=== PATIENT | female | born 1955 | race Caucasian/White ===

== ENCOUNTER 2025-04-13 08:57 | Emergency (ER) | payer MEDICARE ==
[~2025-04-13] VITALS: Ht 167.6 cm; Wt 50.0 kg
[~2025-04-13 08:57] MED LIST: CLOT15CR5 TOP; CLOT15CR5 TP; CYAN10003 SL; HYDR25TA78 PO; NIZOS TP; OLAN2.5T77 MT; SERT20OR6 MT; [UNRECOGNIZED DRUG - CODE] IM
[2025-04-13 09:01] VITALS: O2SAT 99
[2025-04-13 09:39] LABS: BASOPHILS % 0.2 % (0.0-2.0); EOSINOPHILS % 2.7 % (0.0-5.0); HEMATOCRIT. 32.4 % (36.0-48.0); HEMOGLOBIN. 10.4 g/dL (12.0-16.0); LYMPHOCYTES % 7.5 % (20.0-50.0); MEAN PLATELET VOLUME 7.8 fl (7.4-10.4); MONOCYTES % 5.4 % (2.0-8.0); NEUTROPHILS % 84.2 % (40.0-76.0); PLATELET 382 x1000/uL (130-400); RED BLOOD CELL COUNT 4.17 mill/uL (4.2-5.4); RED CELL DISTRIBUTION WIDTH 17.4 % (11.6-14.6)
[2025-04-13 09:55] LABS: CREATININE 1.0 mg/dL (0.6-1.0); UREA NITROGEN BLOOD 6 mg/dL (9-23)
[2025-04-13 10:23] LABS: CLARITY URINE CLEAR (CLEAR); COLOR URINE YELLOW (YELLOW); GLUCOSE URINE NEGATIVE (NEGATIVE); KETONES URINE NEGATIVE (NEGATIVE); LEUKOCYTE ESTERASE URINE 2+ (NEGATIVE); NITRITE URINE NEGATIVE (NEGATIVE); OCCULT BLOOD URINE NEGATIVE (NEGATIVE); PH URINE 6.5 (4.5-8.0); PROTEIN URINE NEGATIVE (NEGATIVE); SPECIFIC GRAVITY URINE 1.007 (1.005-1.030); UROBILINOGEN URINE 0.2 E.U./dL (0.2-1.0)
[2025-04-13 11:01] LABS: *AMPHETAMINES SCREEN URINE NEGATIVE (NEGATIVE); *BARBITURATES SCREEN URINE NEGATIVE (NEGATIVE); *BENZODIAZEPINES SCREEN URINE NEGATIVE (NEGATIVE); *COCAINE SCREEN URINE NEGATIVE (NEGATIVE); CANNABINOID URINE SCREEN NEGATIVE (NEGATIVE); ECSTASY MDMA SCREEN URINE NEGATIVE (NEGATIVE); METHADONE URINE SCREEN NEGATIVE (NEGATIVE); OPIATES URINE SCREEN NEGATIVE (NEGATIVE); PHENCYCLIDINE URINE SCREEN NEGATIVE (NEGATIVE)
[2025-04-13] MEDS: NITROFURANTOIN 100MG M/M CAPSULE PO NR (12:03)
[2025-04-13] MEDS: POTASSIUM CHLORIDE 20MEQ TABLET SR PO NR (12:03)
[2025-04-13] MEDS: LORAZEPAM 1MG TABLET PO ONE (13:51)
[2025-04-13] MEDS ORDERED: NITR-87 MT (17:56)
[2025-04-13] MEDS ORDERED: RIVA20TA MT (17:56)
[2025-04-13] MEDS: POTASSIUM CHLORIDE 20MEQ TABLET SR PO SCH (18:14)
[2025-04-13] MEDS: NITROFURANTOIN 100MG M/M CAPSULE PO ONE (18:14)
[2025-04-13] MEDS: RIVAROXABAN 10 MG TABLET PO SCH (18:14)
[2025-04-13] MEDS: RIVAROXABAN 10 MG TABLET PO STA (18:20)
[2025-04-13 19:58] VITALS: BP 164/64; PULSE 75; RESP 18; TEMP 37; O2SAT 97
[2025-04-13] MEDS ORDERED: NITROFURANTOIN 100MG M/M CAPSULE PO SCH (21:00)
== END 2025-04-13 20:06 ==
LOC: ER 08:57
DX: R45.851 Suicidal ideations (principal); E11.9 Type 2 diabetes mellitus without complications; E87.6 Hypokalemia; F41.9 Anxiety disorder, unspecified; I10 Essential (primary) hypertension; F32.9 Major depressive disorder, single episode, unspecified; Z88.0 Allergy status to penicillin; Z20.822 Contact with and (suspected) exposure to COVID-19; Z79.01 Long term (current) use of anticoagulants; Z79.84 Long term (current) use of oral hypoglycemic drugs; Z79.899 Other long term (current) drug therapy
CPT/HCPCS: 36415; 80048; 80305; 80307; 80320; 80329; 81003; 85025; 87426; 99285; G0480